=== PATIENT | male | born 1965 | race Caucasian/White ===

== ENCOUNTER 2017-02-24 19:27 | Emergency (ER) | payer BC ==
[~2017-02-24] VITALS: Ht 177.8 cm; Wt 102.0 kg
[~2017-02-24 19:27] MED LIST: COLACE100 MG PO; FLO4 PO; NORCO1 TA1 PO
[2017-02-24 21:43] LABS: BASOPHIL % 0.3 % (0-2); PLATELET COUNT 184 x10^3mcL (130-400); RED CELL DISTRIBUTION WIDTH 12.3 % (11.5-14.5)
[2017-02-24 21:56] LABS: CALCIUM 8.9 mg/dL (8.5-10.1); CARBON DIOXIDE 23.3 mmol/L (21-32); CREATININE SERUM 1.5 mg/dL (0.7-1.3); POTASSIUM SERUM 3.6 mmol/L (3.5-5.1)
[2017-02-24 22:05] LABS: UA SPECIFIC GRAVITY 1.015 (1.005-1.035); microscopic required? YES; urine erythrocyte 3+ (NEGATIVE)
[2017-02-25 01:51] VITALS: BP 109/77
== END 2017-02-25 01:51 | disposition home or self-care (01) ==
LOC: ED 19:27
PROVIDERS: Emergency Medicine Emergency Medical Services
DX: N20.9 Urinary calculus, unspecified (principal)
CPT/HCPCS: J1885; J2270; J7030; Q0092

== ENCOUNTER 2017-04-11 04:07 | Emergency (ER) | payer BC ==
[2017-04-11 06:08] VITALS: BP 124/73
== END 2017-04-11 06:08 | disposition home or self-care (01) ==
LOC: ED 04:07
DX: N20.0 Calculus of kidney (principal)
CPT/HCPCS: J1885; J3010; Q0162